=== PATIENT | female | born 1990 | race Caucasian/White ===

== ENCOUNTER 2017-10-28 00:48 | Emergency (ER) | payer OTHER ==
[~2017-10-28] VITALS: Ht 165.1 cm; Wt 74.8 kg
[~2017-10-28 00:48] MED LIST: ACETAMINOPHEN-1 EAC1 PO; ACETAMINOPHEN325 M1 PO; AZO; AZO DINE95 MG PO; BACTRIM DS TAB1 EACH PO; BENTYL20 MG PO; BIRTH CONTROL; CARAFATE 1 GM TA1 G1 PO; CIPRO500 MG PO; CIPROFLOXACIN500 M1 PO; DOXYCYCLINE 10100 M1 PO; DOXYCYCLINE 10100 MG PO; FLAGYL500 MG PO; FLEXERIL PO; FLOMAX0.4 MG PO; HYDROCODONE-AP1 EAC6 PO; IBUPROFEN 200200 M1 PO; IBUPROFEN 800800 M1 PO; LORTABELXR PO; MEDROLDOSEPACK PO; MUCINEX TA600 MG/TA2 PO; NAPROSYN500 MG PO; NITROFURANTOIN100 MG PO; NOHOMEMEDICATIONS; NORCO 5-325 TA1 EACH PO; ONDANSETRON HCL4 M2 PO; PERCOCET 5-3251 EACH PO; PHENAZOPYRIDIN200 M2 PO; PROTONIX40 MG PO; ROBAXIN 750 MG750 M1 PO; TRAMADOL 50 MG50 MG PO; TRIAMCINOLONE A80 G2 TOP; ULTRAM 50MG TAB50 MG PO; VICODIN 5-5001 EACH PO; VISTARIL 25 MG25 M1 PO; ZOFRAN ODT4 MG PO; ZOFRAN4 MG PO; ZPAK PO
[2017-10-28 01:50] LABS: HEMATOCRIT 39.6 % (37.0-47.0); HEMOGLOBIN 12.8 gm/dL (12.0-15.0); MCHC 32.4 g/dL (28.0-37.0); MCV 92.4 fL (80.0-100.0); MPV 7.7 fl. (7.2-11.1); NUCLEATED RBCS 0 /100WBC; PLATELET COUNT* 421 thou/uL (150-400); RBC 4.28 mil/uL (4.20-5.00); RDW-CV 13.8 % (10.5-14.5); WBC 15.5 thou/uL (4.0-11.0)
[2017-10-28 01:50] LABS: URINE BILIRUBIN NEGATIVE (Negative); URINE BLOOD NEGATIVE (Negative); URINE CLARITY CLEAR; URINE COLOR YELLOW; URINE GLUCOSE-RANDOM NEGATIVE (Negative); URINE KETONES NEGATIVE (Negative); URINE LEUKOCYTES-REFLEX NEGATIVE (Negative); URINE NITRITE-REFLEX NEGATIVE (Negative); URINE PROTEIN NEGATIVE (Negative); URINE UROBILINOGEN 0.2 E.U./dl (0.2-1.0)
[2017-10-28 01:57] LABS: AMP/METHAMP POSITIVE (Negative); BARBITURATES Negative (Negative); BENZODIAZEPINES POSITIVE (Negative); COCAINE Negative (Negative); METHADONE Negative (Negative); OPIATES POSITIVE (Negative); PCP Negative (Negative); THC Negative (Negative)
[2017-10-28 02:01] LABS: INR 1.1
[2017-10-28 02:07] LABS: ALKALINE PHOSPHATASE 57 U/L (46-116); ANION GAP 9 mmol/L (7-16); BUN 11 mg/dL (7-18); CALCIUM 9.9 mg/dL (8.5-10.1); CHLORIDE 105 mmol/L (98-107); CO2 26 mmol/L (21-32); CREATININE 0.8 mg/dL (0.6-1.3); GLUCOSE 92 mg/dL (70-99); POTASSIUM 3.8 mmol/L (3.5-5.1); SGOT 11 U/L (15-37); SGPT 16 U/L (30-65); SODIUM 140 mmol/L (136-145); TOTAL BILIRUBIN 0.2 mg/dL (<0.1-1.0); TOTAL PROTEIN 8.1 g/dL (6.4-8.2); TROPONIN-I LEVEL <0.06 ng/mL (<0.06)
[2017-10-28 02:17] LABS: SALICYLATE 4.6 mg/dL (2.8-20.0)
[2017-10-28 02:31] LABS: ACETAMINOPHEN < 2 ug/mL (10-30)
[2017-10-28 02:32] LABS: ALCOHOL < 10 mg/dL (<10)
[2017-10-28 03:25] LABS: ABSOLUTE LYMPHOCYTES 1.7 thou/uL (0.8-5.3); ABSOLUTE MONOCYTES 1.2 thou/uL (0.0-1.2); ABSOLUTE NEUTROPHILS 12.6 thou/uL (1.6-8.1); ANISOCYTOSIS Occasional; LARGE PLATELETS OCCASIONAL; PLATELET ESTIMATE INCREASED; TOXIC GRANULATION 2+
[2017-10-28 04:21] VITALS: BP 135/77
--- NOTE | 2017-10-28 12:26 | EKG ---
[place] [address] ELECTROCARDIOGRAM REPORT Name: PINKY VELÁSQUEZNEY Belia Room: [facility]#: [id number] Admission: 10/28/17 Attend Phys: Discharge: 10/28/17 Date of : [birth year] Report #: [id number] THIS REPORT FOR: //name// [facility] ED Test Date: 2017-10-28 Test Time: 01:35:05 Pat Name: JESSICA VELÁSQUEZ Department: Room: Gender: F Anesthesiology Physician: MARTHA : 1990 Requested By: Kae Nur Order Number: [id number] MD: Austin Archer Measurements Intervals [place] Rate: 115 P: 45 WI: 139 QRS: 19 QRSD: 84 T: 5 QT: 322 QTc: 446 Interpretive Statements Sinus tachycardia Baseline wander in lead(s) V1 Compared to ECG 03/27/2017 23:54:35 Sinus rhythm no longer present Electronically Signed On 10-28-2017 12:26:10 CDT by Austin Archer [email or web address] <ELECTRONICALLY SIGNED> By: Austin Archer MD, [facility] 10/28/17 1226 [id number] Autsin Archer MD, [facility] /EPI
== END 2017-10-28 04:23 ==
LOC: M.ERS 00:48
PROVIDERS: Emergency Medicine
DX: T50.992A Poisoning by other drugs, medicaments and biological substances, intentional self-harm, initial encounter (principal); Z87.440 Personal history of urinary (tract) infections; Z87.442 Personal history of urinary calculi; Z86.14 Personal history of Methicillin resistant Staphylococcus aureus infection; Z88.1 Allergy status to other antibiotic agents; Z88.6 Allergy status to analgesic agent; Z88.5 Allergy status to narcotic agent; Y92.89 Other specified places as the place of occurrence of the external cause